=== PATIENT | female | born 1950 | race Caucasian/White ===

== ENCOUNTER 2021-04-07 06:17 | Day surgery (SDC) | payer MEDICARE, BC ==
[2021-04-07] MEDS ORDERED: Bupivacaine 0.5% 50 ML MDV ONE (06:57)
[2021-04-07] MEDS ORDERED: Lidocaine 1% with EPINEPHrine 1:100,000 50 ML MDV ONE (06:57)
[2021-04-07] MEDS ORDERED: Sodium Chloride 0.9% 1,000 ML IV SCH (07:00)
[2021-04-07] MEDS ORDERED: fentaNYL 100 MCG/2 ML SDV ONE (07:19)
[2021-04-07] MEDS ORDERED: Midazolam 1 MG/ML 2 ML SDV ONE (07:19)
[2021-04-07] MEDS ORDERED: Propofol 200 MG/20 ML SDV ONE (07:20)
[2021-04-07] MEDS ORDERED: ceFAZolin 2 GM in Premix Bag 1 BAG IV ONE (08:00)
== END 2021-04-07 09:57 | disposition home or self-care (01) ==
LOC: JP.SDS 06:17
PROVIDERS: ATTEND Surgery
DX: D17.21 Benign lipomatous neoplasm of skin and subcutaneous tissue of right arm (principal); I10 Essential (primary) hypertension; J45.909 Unspecified asthma, uncomplicated; G47.33 Obstructive sleep apnea (adult) (pediatric)
CPT/HCPCS: 88304; J0690; J2250; J2704; J3010; J3490; J7030